=== PATIENT | female | born 1995 | race Caucasian/White ===

== ENCOUNTER 2019-02-15 09:35 | Emergency (ER) | payer OTHER ==
--- NOTE | 2019-02-15 09:58 | PDOC ---
History of Present Illness - General Chief Complaint: Pain Stated Complaint: APPENDICITIS Time Seen by Provider: 02/15/19 09:51 History Source: Patient, Old Records Exam Limitations: No Limitations - History of Present Illness Initial Comments: 02/15/19 10:33 Stacey Sewell is an otherwise healthy 23F who presents from her PMD for a CT scan to evaluate her for appendicitis. Patient reports 5 years of intermittent RLQ abdominal pain. The pain is not constant, it comes on for a few days and then recedes or others. Pain does not radiate or move, is consistently in the same spot. Does not like to eat more than 1-2 meals per day due to nausea that the pain causes, but has not vomited because of the nausea. Associated with some nightly subjective chills but has never measured a temperature. Denies association with mealtimes or specific foods, does not report any known allergies to any specific food types. Denies constipation or diarrhea, no blood in stools. Has seen Dr. Zuniga on 02/12/19 for this issue, was initially concerned about R ovary, got transabd US revealing no acute pathology, referred to ED for CT for r /o appendicitis. Denies hematuria, dysuria, or polyuria, denies flank pain. LMP 01/30, denies sexual activity in the last year, denies history of STDs, denies vaginal discharge or bleeding, periods are regular and not heavy, no other [employer] history, does not have an [employer]. Denies chest pain, shortness of breath, dizziness. Mild frontal and occipital TRUJILLO , has been going on for years. No known drug or food allergies. No prior surgeries. Denies tobacco, alcohol, or drug use. Past History - Past Medical History Allergies/Adverse Reactions: Allergies Allergy/AdvReac Type Severity Reaction Status Date / Time No Known Allergies Allergy Verified 02/15/19 09:43 Home Medications: Ambulatory Orders Ibuprofen 400 mg PO TID PRN 02/15/19 NK [No Known Home Medication] 02/15/19 COPD: No - Psycho Social/Smoking Cessation Hx Smoking History: Never smoked Hx Alcohol Use: No Drug/Substance Use Hx: No Review of Systems - Review of Systems Constitutional: Yes: Chills, Fever, Loss of Appetite HEENTM: No: Symptoms Reported Respiratory: No: Symptoms reported Cardiac (ROS): No: Symptoms Reported ABD/GI: Yes: Nausea, Other (R-sided abdominal pain). No: Constipated, Diarrhea , Vomiting : No: Burning, Dysuria, Discharge, Frequency, Flank Pain, Hematuria, Incontinence Musculoskeletal: No: Symptoms Reported Integumentary: No: Symptoms Reported Neurological: Yes: Headache. No: Numbness, Paresthesia Endocrine: No: Symptoms Reported Hematologic/Lymphatic: No: Symptoms Reported All Other Systems: Reviewed and Negative *Physical Exam - Vital Signs Last Vital Signs Temp Pulse Resp BP Pulse Ox 98.2 F 73 15 117/70 100 02/15/19 09:41 02/15/19 09:41 02/15/19 09:41 02/15/19 09:41 02/15/19 09:41 - Physical Exam General Appearance: Yes: Nourished, Appropriately Dressed. No: Apparent Distress HEENT: positive: EOMI, DINORA, Pharynx Normal, Hearing Grossly Normal. negative: Scleral Icterus (R), Scleral Icterus (L), Muffled/Hoarse voice, Pharyngeal Erythema, Tonsillar Exudate Neck: positive: Trachea midline, Supple. negative: Tender, Lymphadenopathy (R) , Lymphadenopathy (L) Respiratory/Chest: positive: Lungs Clear, Normal Breath Sounds. negative: Respiratory Distress, Accessory Muscle Use, Labored Respiration, Crackles, Rales , Rhonchi Cardiovascular: positive: Regular Rhythm, Regular Rate. negative: Murmur Gastrointestinal/Abdominal: positive: Normal Bowel Sounds, Tender (RLQ tenderness, negative Neri sign, +psoas sign, +rosving sign), Flat, Soft Musculoskeletal: positive: Normal Inspection. negative: CVA Tenderness Extremity: positive: Normal Capillary Refill, Normal Inspection, Normal Range of Motion. negative: Tender Integumentary: positive: Normal Color, Dry, Warm Neurologic: positive: Fully Oriented, Alert, Normal Mood/Affect, Normal Response ED Treatment Course - LABORATORY CBC & Chemistry Diagram: 02/15/19 10:10 02/15/19 10:10 Medical Decision Making - Medical Decision Making 02/15/19 10:33 Stacey Sewell is an otherwise healthy 23F who presents from her PMD for a CT scan to evaluate her for appendicitis. Patient presentation is consistent with acute appendiceal findings on physical exam, as well as from history pointing away from biliary/gallstone/pancreatitis pathology given no relation to meals, non-epigastric pain. No bloody diarrhea concerning for Crohn's/UC. Pain is also consistent with R ovarian pathology, but has already received abd US showing no ovarian pathology. Outside labs show no WBC elevation, and no fever was noted on presentation today. Will obtain CBC, CMP, UA/UC, UPREG, then obtain CT abd/pelvis w/IV contrast to further evaluate her RLQ pain. 02/15/19 11:30 CT scan results show no signs of acute appendicitis, but has an occluded R ovarian cyst with fluid consistent with recent rupture that could likely be the cause of her pain given on/off pain for last 5 years. Unusual that this cyst was not seen on recent abd US. Labs WNL, UA negative for UTI, Upreg negative. Giving referral to Dr. Medellin with OBGYN, but advised patient that she is welcome to see a different OBGYN if she prefers, as long as she sees one. Recommend NSAIDs and hydration for her pain. Discharge - Discharge Information Problems reviewed: Yes Clinical Impression/Diagnosis: Abdominal pain Qualifiers: Abdominal location: right lower quadrant Qualified Code(s): R10.31 - Right lower quadrant pain Condition: Good - Follow up/Referral Referrals: Jenny Zuniga MD [Primary Care Provider] - Marko Lux MD [Staff Physician] - - Patient Discharge Instructions Additional Instructions: Today you were evaluated for abdominal pain after being sent here by Dr. Zuniga. We obtained a CT scan that shows that you may have a cyst of your right ovary that may be causing your pain, even though it was not seen on your prior ultrasound. We are giving you a referral to see Dr. Lux, an [employer], for further evaluation of this cyst and your pain. For your pain, please drink lots of fluids and take NSAIDs such as Motrin for pain as needed. Please see your primary doctor in the next 3 days for further care. If you experience worsening abdominal pain, fevers, diarrhea over 4 times per day, bloody diarrhea, have pain with nausea or vomiting, have vaginal discharge or bleeding outside of your normal periods, become dizzy, have chest pain, shortness of breath, or have any other new or concerning symptoms, please return to the closest emergency room. - Post Discharge Activity
--- NOTE | 2019-02-15 10:02 | PDOC ---
Attending Attestation - Resident Resident Name: Min Claudio - ED Attending Attestation I have performed the following: I have examined & evaluated the patient, The case was reviewed & discussed with the resident, I agree w/resident's findings & plan, Exceptions are as noted - HPI HPI: 02/15/19 11:20 23 years old with no significant past medical history presents to the emergency department for a CAT scan sent in by her PCP for rule out appendicitis Patient has been having similar pain intermittently for the last several years has never seen an [employer] had a pelvic ultrasound done this week which demonstrated no acute pathology given pain scented to ED for CT and further evaluation - Physicial Exam PE: 02/15/19 11:21 Vitals: Triage Vital signs reviewed General Appearance: No acute distress, well nourished well developed, Head: Atraumatic, Cardiac: Regular rate and rhythym, no murmurs, no rubs, no gallops, Lungs: Clear to auscultation bilateral, good air movement bilaterally, Abdomen: Soft, non distended, normal bowel sounds, mild right lower quadrant tenderness to palpation, no rebound no guarding Extremities: Full range of motion to all extremities, no cyanosis, clubbing, or edema Skin: Warm and dry, no rashes or lesions, no rash, no petechiae Psych: Normal mood, normal affect - Medical Decision Making 02/15/19 11:21 Well-appearing no apparent distress with chronic intermittent pain worse over the last week sent to ED for evaluation by her primary care provider Labs unremarkable CAT scan shows evidence of possible ruptured ovarian cyst patient does not have [employer] will instruct patient to follow-up with [employer] [employer] [facility] this week Findings, the need for follow-up and strict return instructions discussed with patient.
[2019-02-15 10:04] VITALS: BP 117/70; PULSE 73; TEMP 98.2; BMI 25.0
[2019-02-15 10:32] LABS: BASO % 0.4 % (0-2.0); HEMATOCRIT 36.8 % (32.4-45.2); HEMOGLOBIN 12.1 GM/dl (10.7-15.3); LYMPH % 31.5 % (8-40); MCH 28.4 pg (25.7-33.7); MEAN CELL VOLUME 86.2 fl (80-96); MONO % 7.9 % (3.8-10.2); NEUT % 59.2 % (42.8-82.8); PLATELET COUNT 253 K/MM3 (134-434); RBC 4.27 M/mm3 (3.60-5.2); RDW 13.2 % (11.6-15.6); WHITE BLOOD COUNT 6.7 K/mm3 (4.0-10.8)
[2019-02-15 10:39] LABS: ALBUMIN 4.6 g/dl (3.4-5.0); BILIRUBIN,TOTAL 0.4 mg/dl (0.2-1); CREATININE 0.6 mg/dl (0.55-1.3); POTASSIUM 4.3 mmol/L (3.5-5.1)
[2019-02-15 11:45] LABS: EPITHELIAL CELLS FEW /hpf
== END 2019-02-15 11:32 | disposition home or self-care (01) ==
LOC: FER 09:35
DX: R10.31 Right lower quadrant pain (principal)
CPT/HCPCS: 36415; 74177-TC; 80053; 81003; 81015; 84703; 85025; 87086; 99283-25

== ENCOUNTER 2019-12-28 04:44 | Day surgery (SDC) | payer OTHER ==
[2019-12-26 17:15] VITALS: BMI 26.6
[2019-12-28] MEDS ORDERED: PROPOFOL 20 ML ONE (10:28)
[2019-12-28] MEDS ORDERED: MIDAZOLAM HCL 2 MG/2 ML SINGLE DOSE VIAL ONE (10:28)
[2019-12-28] MEDS ORDERED: fentaNYL CITRATE 250 MCG/5 ML VIAL ONE (10:28)
[2019-12-28] MEDS ORDERED: SUCCINYLCHOLINE CHLORIDE 200 MG/10 ML SYRINGE ONE (10:28)
[2019-12-28] MEDS ORDERED: BUPIVACAINE HCL 50 ML ONE (10:55)
[2019-12-28] MEDS ORDERED: LIDOCAINE 1%/EPI 1:100000 (20 ML MULTI DOSE VIAL) ONE (10:55)
[2019-12-28] MEDS ORDERED: ceFAZolin SODIUM 1 GM VIAL IVPB ONE (11:00)
[2019-12-28] MEDS ORDERED: LIDOCAINE 1%/EPI 1:100000 (20 ML MULTI DOSE VIAL) IJ ONE (11:12)
[2019-12-28] MEDS ORDERED: BUPIVACAINE HCL/PF 0.5% (5 MG/ML) 30 ML VIAL IJ ONE (11:12)
[2019-12-28] MEDS ORDERED: DEXAMETHASONE SOD PHOSPHATE 4 MG/1 ML VIAL ONE (12:01)
[2019-12-28] MEDS ORDERED: KETOROLAC TROMETHAMINE 30 MG/1 ML VIAL ONE (12:01)
[2019-12-28] MEDS ORDERED: ceFAZolin SODIUM 1 GM VIAL ONE (12:01)
[2019-12-28] MEDS ORDERED: oxyCODONE HCL 5 MG TABLET PO PRN (12:16)
[2019-12-28] MEDS ORDERED: ONDANSETRON 4 MG/2 ML VIAL IVPUSH PRN (12:16)
[2019-12-28] MEDS ORDERED: ACETAMINOPHEN 325 MG TABLET (FP) PO PRN (12:16)
[2019-12-28] MEDS ORDERED: LACTATED RINGERS SOLUTION 1,000 ML IV SCH (12:30)
--- NOTE | 2019-12-28 13:00 | OP ---
DATE OF OPERATION: DATE OF DICTATION: 12/28/2019 PREOPERATIVE DIAGNOSES: 1. Onychodystrophy, bilateral halluces. 2. Underlying distal phalangeal osseous dystrophy and hypertrophy, bilateral halluces. POSTOPERATIVE DIAGNOSES: 1. Onychodystrophy, bilateral halluces. 2. Underlying distal phalangeal osseous dystrophy and hypertrophy, bilateral halluces. PROCEDURES: 1. Resection of bilateral hallux nail and nail matrices using sharp dissection. 2. Distal ostectomy of the bilateral hallux distal phalanges, removing approximately 50% of the distal phalanx. DESCRIPTION OF PROCEDURE: Under fractional anesthesia and a surgical scrub with Betadine scrub and solution x2, the patient was draped using sterile technique. Inspection of bilateral hallux showed significant dystrophy and hypertrophy of the distal aspects of the hallux, including nails and underlying tissue. Using a No. 15 blade, the nail plates of both halluces were removed. Using the same blade, the nail matrices of the hallux nails were sharply excised on the underside of the eponychium and the dorsum of the proximal phalanges. Using the bone rasp, periosteum and any additional soft tissue was removed from the bases of the proximal phalanges to ensure complete resection of the nail matrices. Attention was then directed to the nail beds. These were excised using sharp dissection, exposing the distal phalanges of both halluces. Using a No. 15 blade, the distal aspect of the distal phalanx was freed from its underlying soft tissue and exposed in the wounds. Using a sagittal saw, approximately 1.5 cm of distal phalangeal bone was removed, cutting the phalanges on the oblique to ensure a smooth plantar surface. After cleaning any osteophytes with the rongeur, copious irrigation was applied to both hallux wounds. The skin was then reapproximated over the dorsum of the hallux and sutured using 4-0 nylon simple interrupted sutures. Dry sterile dressings were applied to both halluces. The patient tolerated the surgical procedure well and left the operating room stable, alert, awake, and in no pain. KD WILLOUGHBY/[id number]
[2019-12-28 16:23] VITALS: TEMP 97
[2019-12-28 17:12] VITALS: BP 107/60; PULSE 74
--- NOTE | 2020-01-01 17:51 | PATH ---
Surgical Pathology Report Patient Name: GIANCARLO MCNEILL [facility]. Rec. #: [id number] /Age/Gender: 1995 (Age: 24) / F Account: [id number] Location: [facility] SURGICAL Taken: 12/28/2019 Received: 12/28/2019 Reported: 01/01/2020 Physicians: Yinka Rodriguez M.D. Specimen(s) Received A: LEFT PHALANX NAIL B: RIGHT PHALANX NAIL C: RIGHT NAIL BED D: RIGHT TOE BONE E: LEFT TOE BONE Clinical History Osteophytes, right and left feet Final Diagnosis A. PHALANX, NAIL, LEFT, EXCISION: PORTION OF NAIL, NAIL BED, AND SKIN WITHOUT SIGNIFICANT PATHOLOGIC FINDINGS. PAS FUNGAL STAIN IS NEGATIVE. B. PHALANX, NAIL, RIGHT, EXCISION: PORTION OF NAIL, NAIL BED, AND SKIN WITHOUT SIGNIFICANT PATHOLOGIC FINDINGS. PAS FUNGAL STAIN IS NEGATIVE. C. NAILBED, RIGHT, EXCISION: PORTION OF NAIL BED AND SKIN WITHOUT SIGNIFICANT PATHOLOGIC FINDINGS. D. BONE, TOE, RIGHT, EXCISION: BONE WITH FATTY MARROW AND ADHERENT BENIGN FIBROCONNECTIVE TISSUE. E. BONE, TOE, LEFT, EXCISION: BONE WITH FATTY MARROW AND ADHERENT BENIGN FIBROCONNECTIVE TISSUE. Electronically Signed Inna Daley M.D. Gross Description A. Received in formalin labeled "left phalanx nail," is a 1.3 x 1.0 x 0.4 cm rosenberg-yellow portion of unguis. Also received within the same container are 2 rosenberg portions of soft tissue measuring 1.3 x 0.8 x 0.2 cm and 1.7 x 1.1 x 0.2 cm. [employer] sections are submitted in one cassette. B. Received in formalin labeled "right phalanx nail," is a 1.4 x 1.4 x 0.3 cm rosenberg-yellow portion of unguis. Also received within the same container is a 0.9 x 0.6 x 0.1 cm rosenberg portion of skin. Am[employer] sections are submitted in one cassette. C. Received in formalin labeled "right nailbed," is a 2.0 x 1.5 x 0.2 cm rosenberg portion of soft tissue, consistent with a nailbed. Am[employer] sections are submitted in one cassette. D. Received in formalin labeled "right toe bone," is a 1.5 x 1.3 x 0.5 cm rosenberg-yellow portion of bone. A welding equipment sales representative section is submitted in one cassette, following decalcification. E. Received in formalin labeled "left toe bone," is a 1.5 x 1.2 x 0.8 cm rosenberg-yellow portion of bone. A welding equipment sales representative section is submitted in one cassette, following decalcification. 12/28/2019 [facility]12/28/2019
== END 2019-12-28 15:30 | disposition home or self-care (01) ==
LOC: JASU-SURG 04:44
PROVIDERS: ATTEND Podiatrist Foot Surgery
PROC: 0QTR0ZZ Resection of Left Toe Phalanx, Open Approach (ICD-10-PCS; principal; 2019-12-28 10:30)
DX: M25.774 Osteophyte, right foot (principal); M25.775 Osteophyte, left foot; S91.309S Unspecified open wound, unspecified foot, sequela
CPT/HCPCS: 73630-TC-LT; 73630-TC-RT-FY; 88300-TC; 88304-TC; 88305-TC; 88311-TC; 88312-TC; 94760